=== PATIENT | male | born 1990 | race American Indian/Alaskan Native ===

== ENCOUNTER 2018-10-14 22:31 | Emergency (ER) | payer OTHER ==
[2018-10-14] MEDS ORDERED: NORCO 5/325 PO ONE (22:37)
[2018-10-14] MEDS ORDERED: ZOFRAN ODT PO ONE (22:37)
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
[2018-10-15] MEDS ORDERED: TRIPLE ANTIBIOTIC TP ONE ×2 (02:11→06:29)
[2018-10-15 02:17] VITALS: BP 117/73
== END 2018-10-15 02:22 | disposition home or self-care (01) ==
LOC: ED 22:31
DX: S00.83XA Contusion of other part of head, initial encounter (principal); F17.200 Nicotine dependence, unspecified, uncomplicated; F12.90 Cannabis use, unspecified, uncomplicated; Z79.899 Other long term (current) drug therapy; V43.52XA Car driver injured in collision with other type car in traffic accident, initial encounter; Y93.89 Activity, other specified; Y92.488 Other paved roadways as the place of occurrence of the external cause; Y99.8 Other external cause status
CPT/HCPCS: 70450; 72125; 99284; A6250; Q0162